=== PATIENT | female | born 1970 | race Caucasian/White ===

== ENCOUNTER 2017-04-04 17:49 | Emergency (ER) | payer OTHER ==
--- NOTE | ~2017-04-04 | CT2 ---
[facility] A Service of [facility] RADIOLOGY TEXT RESULTS PATIENT: ALLEGRA WESTON LOCATION: SED : 66 UNIT #: [id number] AGE: [address]: CHAD AIKEN SEX: F ORDER DR: [id number] [place] [id number] E MR#: [id number] Acc #: [id number] NAME: ALLEGRA WESTON : 1970 SEX: F STUDY DATE/TIME: 04/04/2017 19:18 UNIT: SED ROOM: STUDY DESCRIPTION: CT Abd and Pelv W Cont Attending Physician: Chad Aiken Ordering Physician: Physician Non-Staff Primary Care Physician: Alexandra Vazquez M.D. MEDICAL IMAGING REPORT This report is preliminary unless electronic signature is present. EXAM CT abdomen and pelvis with IV contrast HISTORY Abdomen pain for 3 days. Nausea and vomiting. FINDINGS CT abdomen and pelvis was performed with IV contrast. This CT exam was performed with one or more of the following radiation dose reduction techniques: Automatic exposure control, adjustment of mA and/or kV according to patient size, and iterative reconstruction. CT ABDOMEN: Mild diffuse fatty infiltration of the liver. Prominent left hepatic lobe lateral segment extending over the anterolateral margin of the spleen. No hepatic mass or biliary ductal dilatation. The spleen, pancreas, and adrenal glands are normal. Mild bilateral hydronephrosis. Small umbilical hernia containing fat measuring 2 cm. No bowel herniation. Normal caliber abdominal aorta. CT PELVIS: Normal appendix. No free fluid. Uterus and adnexa are unremarkable. Mild urinary bladder distension. IMPRESSION 1. No acute findings in the abdomen or pelvis. 2. Mild bilateral hydronephrosis and mild urinary bladder distension. 3. Normal appendix. 4. No bowel obstruction. 5. Mild fatty infiltration of the liver. 6. Small umbilical hernia containing fat. [facility] A Service [facility] RADIOLOGY TEXT RESULTS PATIENT: ALLEGRA WESTON LOCATION: SED : 66 UNIT #: [id number] AGE: [address]: CHAD AIKEN SEX: F ORDER DR: Dictated by... Donte Max M.D. THIS IS AN ELECTRONICALLY VERIFIED REPORT Donte Max M.D. at 04/05/2017 11:23 PM DFL/sofia TD: 04/04/2017 22:48 JOB #: [id number] MEDICAL IMAGING REPORT Page 1 of 1
[~2017-04-04 17:49] MED LIST: ABILIFY2 MG PO; ACETAMINOPHEN PO; ALBUTEROL17 GM INH; AMLODIPINE BESY10 MG PO; ASMANEX0.24 G3 IH; BUSPAR; BUSPAR PO; CELEXA PO; DUONEB 2.5-0.5 M3 ML NEB; FLEXERIL10 MG PO; GUAIFENESIN LA600 M1 PO; HYDROCODON-ACE1 EAC7; IBUPROFEN PO; LEVAQUIN750 MG PO; LOPRESSOR PO; LORAZEPAM0.5 MG PO; METOPROLOL TAR100 MG; NEXIUM PO; NORVASC10 MG PO; OMEPRAZOLE40 M1 PO; PROMACTA25 MG PO; TOPROL XL 50 MG50 M1 PO
[2017-04-04] MEDS ORDERED: OMNICEF300 M1 PO (17:52)
[2017-04-04 18:29] LABS: URINE SOURCE CLEAN CATCH
[2017-04-04 18:33] LABS: MICRO INDICATED? YES; URINE APPEARANCE CLEAR; URINE BILIRUBIN NEG (NEG); URINE BLOOD TRACE-INTACT (NEG); URINE COLOR YELLOW; URINE GLUCOSE NEG (NORM); URINE KETONE NEG (NEG); URINE LEUKOCYTE ESTERASE TRACE (NEG); URINE NITRATE NEG (NEG); URINE PROTEIN NEG (NEG); URINE UROBILINOGEN 0.2 MG/DL (NORM)
[2017-04-04 18:37] LABS: BASOPHIL# 0.1 X10e3 (0-0.3); BASOPHIL% 0.7 % (0-2.5); EOSINOPHIL# 0.2 X10e3 (0-0.7); EOSINOPHIL% 1.8 % (0.0-7.0); HEMATOCRIT 39.4 % (35.0-45.0); HEMOGLOBIN 13.5 gm/dL (12.0-16.0); LYMPHOCYTE# 2.9 X10e3 (1.0-3.5); MEAN CELL VOLUME 86.6 FL (83-96); MEAN CORPUSCULAR HEMOGLOBIN 29.7 PG (28-34); MEAN CORPUSCULAR HGB CONC 34.3 g/dL (30-36); MEAN PLATELET VOLUME 9.4 FL (6.5-11.5); MONOCYTE# 0.8 X10e3 (0-1.0); MONOCYTE% 8.3 % (3.0-12.0); NEUTROPHIL# 5.7 X10e3 (1.5-7.1); NEUTROPHIL% 59.2 % (40-75); PLATELET COUNT 181 X10e3 (140-420); RED BLOOD COUNT 4.55 X10e (3.90-5.30); RED CELL DISTRIBUTION WIDTH 13.6 % (11.0-15.5); WHITE BLOOD COUNT 9.6 X10e3 (4.0-10.5)
[2017-04-04 18:38] LABS: URINE RBC 0-2 /[HPF] (0-2)
[2017-04-04 18:39] LABS: URINE BACTERIA 2+ (NEG); URINE SQUAMOUS EPITHELIAL CELL FEW /[HPF]
[2017-04-04 18:41] LABS: DIFF IND NO
[2017-04-04 18:56] LABS: ALBUMIN SERUM 4.5 g/dL (3.5-5.0); BILIRUBIN, DIRECT 0.1 mg/dL (0.0-0.2); BILIRUBIN,INDIRECT 0.3 mg/dL (0.0-0.9); BILIRUBIN,TOTAL 0.4 mg/dL (0.2-2.0); BUN/CREATININE RATIO 13.75; CALCIUM SERUM 8.5 mg/dL (8.4-10.2); CREATININE SERUM 0.8 mg/dL (0.6-1.4); GLOM FILT RATE Estimated 87.3 mL/min (>60); POTASSIUM 3.4 mmol/L (3.5-5.1); PROTEIN TOTAL SERUM 7.5 g/dL (6.0-8.3)
== END 2017-04-04 21:44 | disposition home or self-care (01) ==
LOC: SED 17:49
PROVIDERS: Nurse Practitioner
DX: N39.0 Urinary tract infection, site not specified (principal); N13.30 Unspecified hydronephrosis; K21.9 Gastro-esophageal reflux disease without esophagitis; I10 Essential (primary) hypertension; J45.909 Unspecified asthma, uncomplicated; F41.9 Anxiety disorder, unspecified; F17.210 Nicotine dependence, cigarettes, uncomplicated; Z87.442 Personal history of urinary calculi; Z79.899 Other long term (current) drug therapy; Z88.5 Allergy status to narcotic agent; Z88.2 Allergy status to sulfonamides
CPT/HCPCS: 36415; 51702; 74177; 80048; 80076; 81003; 82150; 83690; 85025; 96361; 96374; 96375; 99284; J1885; J2405; Q9967